=== PATIENT | female | born 1950 | race Caucasian/White ===

== ENCOUNTER 2017-01-01 17:29 | Observation (INO) | payer MEDICARE ==
[2017-01-01 18:02] LABS: Hematocrit 38.8 % (37.0-47.0); Hemoglobin 12.3 gm/dL (12.5-16.0); Mean Cell Volume 87.6 fl (78-100); Mean Corpuscular Hemoglobin 27.8 pg (27-31); Mean Corpuscular Hgb Conc 31.7 g/dl (32-36); Mean Platelet Volume 9.8 fl (6.0-9.5); Neutrophil # 5.4 K/mm3 (1.3-6.0); Neutrophil % 70.4 % (42-75.0); Platelet Count 198 K/mm3 (150-450); Red Blood Count 4.43 M/mm3 (4.2-5.4); Red Cell Distribution Width 13.9 % (11.5-14.0); White Blood Count 7.7 K/mm3 (4.0-10.5)
[2017-01-01] MEDS ORDERED: ASPIRIN 81 MG TAB.CHEW ONE (18:09)
--- NOTE | 2017-01-01 18:12 | ERNOTE ---
Dyspnea - General Presenting Symptoms: shortness of breath Time Seen by Provider: 01/01/17 17:50 Source: patient Exam Limitations: no limitations - Immun/Allergies/Home Medications Immunizations: IMMUNIZATION HX Immunizations Up to Date Yes History of Influenza Vaccine Yes Hx Pneumococcal Vaccination Yes Allergies/Adverse Reactions: Allergies lisinopril Adverse Reaction (Mild, Verified 12/21/15 06:21) ? COUGH Home Medications: HOME MEDICATIONS Calcium Carbonate/Vitamin D3 [Calcium 600-Vit D3 400 Tablet] 1 each PO BID 12/06 [Last Taken Unknown] Carvedilol [Coreg] 25 mg PO BIDWM 12/06/15 [Last Taken 12/21/15 05:00] Furosemide [Lasix] 40 mg PO DAILY 12/06/15 [Last Taken Unknown] Montelukast Sodium [Singulair] 10 mg PO QPM 12/06/15 [Last Taken Unknown] Pantoprazole Sodium [Protonix] 40 mg PO BID 12/06/15 [Last Taken Unknown] Potassium Chloride [Klor-Con 10] 20 meq PO DAILY PRN 12/06/15 [Last Taken Unknown] Aspirin [Aspirin Enteric Coated] 81 mg PO DAILY 12/12/15 [Last Taken Unknown] Levothyroxine Sodium [Synthroid] 50 mcg PO DAILY 12/12/15 [Last Taken Unknown] Oxybutynin Chloride [Ditropan Xl] 10 mg PO DAILY 12/12/15 [Last Taken Unknown] amLODIPine BESYLATE [Norvasc] 5 mg PO DAILY 12/12/15 [Last Taken 12/21/15 05:00] traZODone HCL [Desyrel] 100 mg PO HS 12/12/15 [Last Taken Unknown] Oxybutynin Chloride [Ditropan] 5 mg PO BID 01/01/17 [Last Taken Unknown] Ropinirole HCl [Requip] 0.25 mg PO HS 01/01/17 [Last Taken Unknown] - History of Present Illness Narrative: Patient states that she has bee short of breath for at least two weeks. The symptoms started gradually and have been getting worse. She was seen in the clinic on 12/20 and started on augmentin for sinusitis with no relieve. She was seen again today and send to the ER as her symptoms had gotten worse. She was diagnosed with afib two years ago, had a few cardioversions, was on coumadin and elliquis but was bleeding too much and is only taking ASA currently. The end of October Dr Cage (cardiology) stop her losartan/HCTZ as her heart rate was not controlled and put her on cardizem instead. Since that was her only new medication and she was concerned that it might be causing her symptoms she stopped it three days ago. She also has a history of CHF, put on about 6lbs in the last two weeks Initiating event: Denies: upper resp illness, out of meds Frequency of episodes: Denies: no prior episodes Modifying Factors - (Improves): Reports: rest Modifying Factors (Worsens): Reports: activity, lying down Associated Symptoms-Dyspnea: Reports: chest pain/discomfort, palpitations, cough. Denies: fever/chills Prior Treatment: Reports: recently seen, currently on antibiotics Review of Systems - Review of Systems Constitutional: Present: recent illness, malaise. Absent: fever, chills ENT: Present: nose congestion. Absent: ear pain, nasal drainage Respiratory: Present: See HPI, shortness of breath, cough Cardiology: Present: chest pain - central tighness Gastrointestinal/Abdominal: Absent: nausea, vomiting, abdominal pain Genitourinary: Present: dysuria Neurological: Absent: headache - Patient's Past Medical History Patient History - Medical: Depression, GERD, Obesity, Osteoarthritis Patient History - Cardiac/Respiratory: Atrial Fibrillation, CHF, Hypertension Patient History - Cancer: No Hx of Cancer Patient History - Surgical Procedures: Appendectomy, Colonoscopy, D & C, T & A Patient History - Other: None - Family History Father Family History - Medical: Mother Family History - Medical: , Diabetes Type 2 Family History - Cardiac/Respiratory: Angina Sister Family History - Medical: History Unknown - Social History Living Situations: home Abuse History: No History of abuse Psych History: Hx of Depression, Current tx/ever been on anti-depressants or anti-anxiety meds Smoking Status: Never smoker Have you smoked in the past 12 months: No Do you dip or chew tobacco: No Alcohol Use: rarely Drug Use: none - Immunizations Immunizations Up to Date: Yes Hx Pneumococcal Vaccination: Yes History of Influenza Vaccine: Yes Physical Exam - Physical Exam General Appearance: Present: wd/wn, alert, mild distress, anxious Eye Exam: Normal inspection: bilateral, PERRL: bilateral Ears, Nose, Throat: Present: normal pharynx Respiratory: Present: decreased breath sounds, rales - both bases Cardiovascular/Chest: Present: tachycardia, irregularly irregular Gastrointestinal/Abdominal: Present: nontender, nondistended, soft Extremity Exam: Present: normal inspection, no edema Neurological Exam: Present: alert, oriented, normal mood/affect Skin Exam: Present: normal color, warm/dry ED Progress - Results and Orders Patient's Lab Results:: I have reviewed the patient's lab results. - Vital Signs Patient's Vital Signs:: I have reviewed the patient's vital signs. Vital Signs: Vital Signs 01/01/17 17:30 Temperature 35.8 C L Pulse Rate 125 H Respiratory 20 Rate Blood Pressure 162/124 O2 Sat by Pulse 95 Oximetry - EKG EKG: atrial fibrillation - HR 117, other - low voltage, no acute changes, no previous EKG read: Interp. by me - Progress/Reassessment Chief Complaint: Dyspnea Progress Note-Subjective: 01/01/17 18:23 after first nitro chest pain from 02/25 to 210 01/01/17 18:58 pain resolved after third nitro, HR 90's after cardizem patient now admits that she stopped her lasix the last couple of days as it was hard for her to get to the bathroom 01/01/17 19:30 discussed results with patient and family, offered admission for chest pain rule out and CHf exacerbation, patient agreed no chest pain at this time 01/01/17 19:35 discussed with Delta (hospitalist) accepted patient for observation admission Departure Clinical Impression: Atrial fibrillation with RVR CHF (congestive heart failure) Qualifiers: Congestive heart failure type: unspecified congestive heart failure type Congestive heart failure chronicity: acute on chronic Qualified Code(s): I50.9 - Heart failure, unspecified Chest pain Qualifiers: Chest pain type: precordial chest pain Qualified Code(s): R07.2 - Precordial pain - Departure Disposition: [facility] Condition: Good
--- OUTSIDE RECORDS SUMMARY | 2017-01-01 18:12 | XMS REPORT | Summary of Care ---
:1950 Author Organization [facility] Address [address] [place] [id number]- Care Team Providers Name Role Phone Rosita Pena Primary Care Physician Yanelis Klein Primary Care Physician Encounter Date(s): 04/26/16 - 04/26/[address] [address]- [facility] Final: Unspecified atrial fibrillation Discharge Disposition: 01 Discharged to Home or Self Care Attending Physician: Messi Cage DO Admitting Physician: Messi Cage DO Vital Signs No data available for this section Problem List Condition Effective Dates Status Health Status Informant Atrial fibrillation(Confirmed) Active Depression(Confirmed) Active Thyroid disease(Confirmed) Active Anxiety disorder(Confirmed) Active GERD - Gastro-esophageal reflux Active disease(Confirmed) Hyperlipidemia(Confirmed) Active Hypertension(Confirmed) Active Hypothyroidism(Confirmed) Active OA - Osteoarthritis(Confirmed) Active Obesity(Confirmed) Active Moderate recurrent major Active depression(Confirmed) RLS (restless legs Active syndrome)(Confirmed) Allergies, Adverse Reactions, Alerts Substance Reaction Severity Status codeine Hives Severe Active Medications Ambien 10 mg, Oral, HS, 0 Refill(s) Start Date: 02/17/14 Stop Date: 06/23/15 Status: Completedamiodarone 200 mg oral tablet 1 tab(s), Oral, Daily Start Date: 04/08/14 Stop Date: 05/07/14 Status: Discontinuedamiodarone 200 mg oral tablet 1 tab(s), Oral, BID, # 180 tab(s), 3 Refill(s), [facility] Start Date: 05/07/14 Stop Date: 04/18/15 Status: DiscontinuedamLODIPine 5 mg oral tablet 1 tab(s), Oral, Daily, # 90 tab(s), 3 Refill(s), Start Date: 09/15/15 16:24:00 CDT, Pharmacy: [facility] Start Date: 09/15/15 Stop Date: 05/01/16 Status: Discontinuedamoxicillin-clavulanate ES 875 mg, Oral, BID, 0 Refill(s), Start Date: 03/23/15 10:38:00 CDT Start Date: 03/23/15 Stop Date: 06/29/15 Status: Discontinuedaspirin 81 mg, Oral, Daily, 0 Refill(s), Start Date: 02/17/14 14:40:00 CDT Start Date: 02/17/14 Status: OrderedBenicar HCT 40 mg-25 mg oral tablet 1 tab(s), Oral, Daily, 0 Refill(s) Start Date: 02/17/14 Stop Date: 01/27/15 Status: CompletedCalcium 600+D See Instructions, One tablet twice daily, 0 Refill(s), Start Date: 06/29/15 11: 13:00 CDT Special Instructions: One tablet twice daily Start Date: 06/29/15 Status: Orderedcarvedilol 25 mg oral tablet 1 tab(s), Oral, BID, # 180 tab(s), 3 Refill(s), Start Date: 12/07/15 15:59:00 NEWSCAST DIRECTOR, Pharmacy: [facility] Start Date: 12/07/15 Stop Date: 12/01/16 Status: Orderedcarvedilol 25 mg oral tablet 1 tab(s), Oral, BID, # 60 tab(s), 0 Refill(s), Start Date: 06/29/15 11:14:00 CDT Start Date: 06/29/15 Stop Date: 12/07/15 Status: Discontinuedcarvedilol 25 mg oral tablet 1 tab(s), Oral, BID Start Date: 04/08/14 Stop Date: 01/27/15 Status: Completedcitalopram 40 mg oral tablet 1 tab(s), Oral, Daily Start Date: 04/08/14 Stop Date: 06/23/15 Status: CompletedCoreg 6.25 mg oral tablet 1 tab(s), Oral, BID, 0 Refill(s) Start Date: 02/17/14 Stop Date: 01/26/15 Status: CompletedDexilant 60 mg, Oral, Daily, 0 Refill(s) Start Date: 02/17/14 Stop Date: 04/08/14 Status: DiscontinuedEliquis 5 mg oral tablet 1 tab(s), Oral, BID, # 180 tab(s), 3 Refill(s), Start Date: 03/24/15 12:09:32 CDT, Pharmacy: [id number] Start Date: 03/24/15 Stop Date: 06/21/15 Status: DiscontinuedEliquis 5 mg oral tablet 1 tab(s), Oral, BID, # 180 tab(s), 3 Refill(s), Start Date: 02/16/15 16:15:00 CDT, Pharmacy: [facility] Start Date: 02/16/15 Stop Date: 03/24/15 Status: CompletedEliquis 5 mg oral tablet 1 tab(s), Oral, BID, # 60 tab(s), 0 Refill(s), Start Date: 02/16/15 16:14:00 CDT Start Date: 02/16/15 Stop Date: 02/16/15 Status: Discontinuedfurosemide 40 mg oral tablet 1 tab(s), Oral, Daily, # 90 tab(s), 3 Refill(s), Start Date: 12/07/15 15:59:00 NEWSCAST DIRECTOR, Pharmacy: [facility] Start Date: 12/07/15 Stop Date: 12/01/16 Status: Orderedfurosemide 40 mg oral tablet 1 tab(s), Oral, Daily Start Date: 04/08/14 Stop Date: 12/07/15 Status: DiscontinuedHYDROcodone-acetaminophen 5 mg-325 mg oral tablet 1 tab(s), Oral, q6hr, PRN for pain, X 5 days, # 20 tab(s), 0 Refill(s), Start Date: 02/07/16 14:13:00 CDT, Pharmacy: [id number] Start Date: 02/07/16 Stop Date: 02/12/16 Status: CompletedKlor-Con 10 oral tablet, extended release 2 tab(s), Oral, Daily Start Date: 04/08/14 Stop Date: 10/24/15 Status: Discontinuedlevothyroxine 25 mcg (0.025 mg) oral tablet 1 tab(s), Oral, Daily Start Date: 04/08/14 Stop Date: 06/29/15 Status: Discontinuedlevothyroxine 50 mcg (0.05 mg) oral tablet 1 tab(s), Oral, Daily, # 30 tab(s), 1 Refill(s), Start Date: 06/29/15 11:48:00 CDT, Pharmacy: [id number] Start Date: 06/29/15 Status: Orderedlidocaine 2% topical gel with applicator 10 mL, Topical, BID, PRN pain mild 1-3, # 280 mL, 0 Refill(s), Start Date: 02/06 14:09:00 CDT, Pharmacy: [id number] Start Date: 02/07/16 Stop Date: 02/07/16 Status: Discontinuedlidocaine 4% topical cream 1 chaya, Topical, BID, PRN pain mild 1-3, X 5 days, # 30 gm, 1 Refill(s), Start Date: 02/07/16 15:37:00 CDT, Pharmacy: [id number] Start Date: 02/07/16 Stop Date: 02/17/16 Status: Completedlosartan-hydrochlorothiazide 100 mg-25 mg oral tablet 1 tab(s), Oral, Daily, # 90 tab(s), 3 Refill(s), Start Date: 12/07/15 15:54:00 NEWSCAST DIRECTOR, Pharmacy: [facility] Start Date: 12/07/15 Stop Date: 12/01/16 Status: Orderedlosartan-hydrochlorothiazide 100 mg-25 mg oral tablet 1 tab(s), Oral, Daily Start Date: 04/08/14 Stop Date: 12/07/15 Status: DiscontinuedMetroGel 1% topical gel 1 chaya, Topical, Daily, # 45 gm, 0 Refill(s), Pharmacy: [facility] [place] Start Date: 05/25/14 Stop Date: 01/27/15 Status: Completedmiconazole 2% topical cream 1 chaya, Topical, BID, X 14 days, # 60 gm, 1 Refill(s), Start Date: 09/15/15 16:29 :00 CDT, Pharmacy: [id number] Start Date: 09/15/15 Stop Date: 10/13/15 Status: Completedmontelukast 10 mg oral tablet 1 tab(s), Oral, qPM, # 90 tab(s), 3 Refill(s), Start Date: 12/07/15 15:58:00 NEWSCAST DIRECTOR , Pharmacy: [facility] Start Date: 12/07/15 Stop Date: 12/01/16 Status: Orderedmontelukast 10 mg oral tablet 1 tab(s), Oral, qPM Start Date: 04/08/14 Stop Date: 12/07/15 Status: Discontinuedmultivitamin 1 tab(s), Oral, Daily, 0 Refill(s), Start Date: 09/15/15 15:00:00 CDT Start Date: 09/15/15 Status: OrderedNorvasc 10 mg oral tablet 1 tab(s), Oral, Daily, # 30 tab(s), 5 Refill(s), Start Date: 05/01/16 16:12:00 CDT, Pharmacy: [id number] Start Date: 05/01/16 Status: Orderednystatin 100,000 units/g topical powder 1 chaya, Topical, BID, X 90 days, # 60 gm, 1 Refill(s), Start Date: 08/17/15 15:07 :00 CDT, Pharmacy: [facility] Start Date: 08/17/15 Stop Date: 02/13/16 Status: Completedoxybutynin 10 mg/24 hr oral tablet, extended release 1 tab(s), Oral, Daily, X 90 days, # 90 tab(s), 3 Refill(s), Start Date: 15:57:17 NEWSCAST DIRECTOR, Pharmacy: [facility] Start Date: 12/07/15 Stop Date: 01/09/16 Status: Completedoxybutynin 10 mg/24 hr oral tablet, extended release 1 tab(s), Oral, Daily, # 90 tab(s), 0 Refill(s), Start Date: 01/09/16 10:35:50 NEWSCAST DIRECTOR, Pharmacy: [facility] Start Date: 01/09/16 Status: Orderedoxybutynin 10 mg/24 hr oral tablet, extended release 1 tab(s), Oral, Daily, X 30 days, # 30 tab(s), 1 Refill(s), Start Date: 10:21:00 NEWSCAST DIRECTOR, Pharmacy: [facility] [id number] Start Date: 10/24/15 Stop Date: 12/07/15 Status: CompletedPercocet 5/325 1 tab(s), Oral, q6hr interval, PRN pain moderate 4-7, 0 Refill(s), Start Date: 02/07/16 12:57:00 CDT Start Date: 02/07/16 Stop Date: 05/01/16 Status: DiscontinuedProtonix 40 mg oral delayed release tablet 1 tab(s), Oral, Daily, # 90 tab(s), 3 Refill(s), Start Date: 12/07/15 15:56:00 NEWSCAST DIRECTOR, Pharmacy: [facility] Start Date: 12/07/15 Stop Date: 12/01/16 Status: OrderedProtonix 40 mg oral delayed release tablet 1 tab(s), Oral, Daily Start Date: 04/08/14 Stop Date: 12/07/15 Status: DiscontinuedrOPINIRole 0.25 mg oral tablet 1 tab(s), Oral, HS, 1 to 3 hours before bedtime., # 90 tab(s), 1 Refill(s), Start Date: 12/07/15 16:07:00 NEWSCAST DIRECTOR, Pharmacy: [facility] Special Instructions: 1 to 3 hours before bedtime. Start Date: 12/07/15 Stop Date: 06/04/16 Status: Orderedsertraline 100 mg oral tablet 1 tab(s), Oral, Daily, # 90 tab(s), 3 Refill(s), Start Date: 10/24/15 10:13:00 NEWSCAST DIRECTOR, Pharmacy: [facility] Start Date: 10/24/15 Stop Date: 10/18/16 Status: Orderedsertraline 25 mg oral tablet 1 tab(s), Oral, Daily, Patient to schedule follow-up before further refills., # 90 tab(s), 0 Refill(s), Start Date: 07/28/15 12:41:00 CDT, Pharmacy: [facility] Special Instructions: Patient to schedule follow-up before further refills. Start Date: 07/28/15 Stop Date: 08/17/15 Status: Discontinuedsertraline 25 mg oral tablet 1 tab(s), Oral, Daily, # 30 tab(s), 0 Refill(s), Start Date: 06/29/15 11:47:00 CDT, Pharmacy: [facility] [id number] Start Date: 06/29/15 Stop Date: 07/28/15 Status: Completedsertraline 50 mg oral tablet 1.5 tab(s), Oral, Daily, X 90 days, # 135 tab(s), 1 Refill(s), Start Date: 09/15 15:36:29 CDT, Pharmacy: [facility] Start Date: 09/15/15 Stop Date: 10/24/15 Status: Completedsertraline 50 mg oral tablet 1 tab(s), Oral, Daily, # 90 tab(s), 3 Refill(s), Start Date: 08/17/15 15:04:00 CDT, Pharmacy: [facility] Start Date: 08/17/15 Stop Date: 09/15/15 Status: DiscontinuedSuprep Bowel Prep Kit oral liquid 1 bottles, Oral, BID, Mix 1 btl to 16oz water and drink. Next morning; repeat use second btl. Complete at least 1 hr before colonscopy., # 1 kit(s), 0 Refill (s), Start Date: 02/16/15 15:52:00 CDT, Pharmacy: [place], [place] Special Instructions: Mix 1 btl to 16oz water and drink. Next morning; repeat use second btl. Complete at least 1 hr before colonscopy. Start Date: 02/16/15 Stop Date: 03/26/15 Status: Completedtemazepam 30 mg oral capsule 1 cap(s), Oral, HS, PRN for sleep, 0 Refill(s), Start Date: 06/23/15 11:02:00 CDT Start Date: 06/23/15 Stop Date: 08/17/15 Status: DiscontinuedtraZODone 50 mg oral tablet 1 tab(s), Oral, HS, # 90 tab(s), 3 Refill(s), Start Date: 08/17/15 15:03:00 CDT , Pharmacy: [facility] Start Date: 08/17/15 Stop Date: 08/11/16 Status: OrderedTylenol Extra Strength 1,000 mg, Oral, q6hr interval, 0 Refill(s), Start Date: 01/28/15 16:24:00 CDT Start Date: 01/28/15 Stop Date: 01/28/15 Status: DiscontinuedViibryd 40 mg oral tablet 1 tab(s), Oral, Daily, 0 Refill(s) Start Date: 02/17/14 Stop Date: 01/26/15 Status: Discontinuedwarfarin 3 mg, Daily, take as directed per coumadin clinic, 0 Refill(s) Special Instructions: take as directed per coumadin clinic Start Date: 02/17/14 Stop Date: 04/01/14 Status: Discontinuedwarfarin 3 mg oral tablet 1 tab(s), Oral, Daily, take as directed per coumadin clinic, # 90 tab(s), 3 Refill(s), Pharmacy: [facility] Special Instructions: take as directed per coumadin clinic Start Date: 04/01/14 Stop Date: 03/23/15 Status: Completed Results No data available for this section Immunizations Vaccine Date Refusal Reason influenza virus vaccine, inactivated 09/22/12 pneumococcal 23-polyvalent vaccine 01/20/07 zoster vaccine live1 09/17/15 1Result Comment: [09/19/2015] Given at [facility] Procedures Procedure Date Related Diagnosis Body Site Echocardiography1 04/17/16 Colonoscopy2 03/25/15 Esophagogastroduodenoscopy3 03/25/15 Catheter ablation for cardiac arrhythmia 05/13/14 Arthroscopy of knee4 Arthroscopy of shoulder, left total Colonoscopy D&C - Dilatation and curettage Multiple right knee surgeries Tonsillectomy 1Scanned In - Done at [id number] from documented surgical [id number] from documented surgical [id number] Social History No data available for this section Assessment and Plan No data available for this section
--- OUTSIDE RECORDS SUMMARY | 2017-01-01 18:12 | XMS REPORT | Continuity of Care Document ---
:1950 Author Organization [facility] ([facility]) Address [address] [place] [address] Phone [phone] Care Team Providers Name Role Phone Yanelis Klein Primary Care Provider [phone] Source Comments This disclosure is being made pursuant to the Care Everywhere program, applicable federal and state laws, and may not contain all informaitonavailable regarding this patient.[facility] ([facility]) Active Allergies and Adverse Reactions No Known Allergies Current Medications Prescription Sig. Disp. Refills Start Date End Date Status CARVEDILOL 25 mg tablet 08/23/2015 Active FLUVIRIN 4513-4921 45 mcg 0 08/08/2015 Active (15 mcg x 3)/0.5 mL susp LEVOTHYROXINE 50 mcg 1 06/29/2015 Active tablet LOSARTAN-HYDROCHLOROTHIAZI 08/23/2015 Active DE 100-25 mg per tablet MONTELUKAST 10 mg tablet 08/23/2015 Active NYSTATIN 100,000 unit/g 08/19/2015 Active powder SERTRALINE 50 mg tablet 08/19/2015 Active TRAZODONE 50 mg tablet 08/19/2015 Active aspirin 81 mg EC tablet Take 81 mg by Active mouth daily. oxybutynin 10 mg CR tablet Take 10 mg by Active mouth daily. amLODIPine 5 mg tablet Take 5 mg by mouth Active daily. multivitamin tablet Take 1 tablet by Active mouth daily. rOPINIRole 0.25 mg tablet Take 0.25 mg by Active mouth 3 times daily. potassium chloride PO Active naproxen 250 mg tablet Take 250 mg by Active mouth 2 times daily with meals. traMADol 50 mg tablet Take 50 mg by Active mouth 4 times daily as needed. metaxalone 800 mg tablet Take 800 mg by Active mouth 3 times daily. HYDROcodone-acetaminophen 0 04/12/2016 Active 5-325 mg per tablet Active Problems Problem Noted Date Abdominal pannus 04/26/2016 Macromastia 09/16/2015 Social History Tobacco Use Types Packs/Day Years Used Date Never Smoker Smokeless Tobacco: Never Used Last Filed Vital Signs Vital Sign Reading Time Taken Blood Pressure 140/83 09/13/2015 2:40 PM CDT Pulse 78 09/13/2015 2:40 PM CDT Temperature 36 C (96.8 F) 04/24/2016 4:23 PM CDT Respiratory Rate - - Height 1.74 m (5' 8.5") 09/13/2015 2:40 PM CDT Weight 104.65 kg (230 lb 11.4 oz) 09/13/2015 2:40 PM CDT Body Mass Index 34.57 09/13/2015 2:40 PM CDT Oxygen Saturation - - Plan of Care Health Maintenance Due Date Last Done Comments HCV Screening 1950 Hepatitis B Vaccine (1 of 3 - Primary Series) 1950 Tdap Vaccine 1961 Lipid Disorder Screening 02/24/1968 Td Vaccine 02/24/1968 Mammogram 1990 Colonoscopy 2000 Zoster Vaccine 2010 Osteoporosis Screening (DXA Bone Density) 2015 Pneumococcal Vaccine (1 of 2 - PCV13) 2015 Influenza Vaccine: Seasonal (#1) 06/18/2016 Results from Last 3 Months Not on file
[2017-01-01] MEDS: NITROGLYCERIN 0.4 MG/TAB BTL SL ONE ×3 (18:18→18:47)
[2017-01-01] MEDS ORDERED: ASPIRIN 81 MG TAB.CHEW PO ONE (18:19)
[2017-01-01 18:21] LABS: ALT 36 U/L (19-67); AST 29 U/L (0-48); Albumin * 3.8 gm/dl (3.4-5.0); Alkaline Phosphatase * 62 U/L (50-170); Anion Gap 10.9 mmol/L (6.8-13.8); BNP * 8018 pg/mL (5-325); BUN/Creatinine Ratio 12.5 (9.0-21.6); Bilirubin, Total 0.8 mg/dL (0.0-1.1); Blood Urea Nitrogen 17 mg/dL (3-23); Ca. Corrected For Albumin 8.6 mg/dL (8.4-10.2); Calcium * 8.8 mg/dL (7.9-10.9); Carbon Dioxide 28.5 mmol/L (24-32.6); Chloride 108 mmol/L (97-106); Glucose * 102 mg/dL (70-110); Potassium 4.4 mmol/L (3.4-4.6); Sodium 143 mmol/L (132-142); Total Protein 6.6 gm/dL (6.2-8.2); Troponin I Less than 0.017 ng/ml (0.00-0.10)
[2017-01-01] MEDS ORDERED: DILTIAZEM HCL 5 MG/ML VIAL IV ONE ×2 (18:24→18:25)
[2017-01-01] MEDS ORDERED: FUROSEMIDE 10 MG/ML VIAL IV ONE (19:40)
[2017-01-01] MEDS ORDERED: DILTIAZEM HCL 30 MG TABLET PO ONE (19:43)
[2017-01-01] MEDS ORDERED: DILTIAZEM HCL 30 MG TABLET ONE (19:45)
[2017-01-01] MEDS ORDERED: FUROSEMIDE 10 MG/ML VIAL ONE (19:45)
--- OUTSIDE RECORDS SUMMARY | 2017-01-01 19:48 | XMS REPORT | Continuity of Care Document ---
:1950 Author Organization [facility] ([facility]) Address [address] [place] [address] Phone [phone] Care Team Providers Name Role Phone Yanelis Klein Primary Care Provider [phone] Source Comments This disclosure is being made pursuant to the Care Everywhere program, applicable federal and state laws, and may not contain all informaitonavailable regarding this patient.[facility] ([facility]) Active Allergies and Adverse Reactions No Known Allergies Current Medications Prescription Sig. Disp. Refills Start Date End Date Status CARVEDILOL 25 mg tablet 08/23/2015 Active FLUVIRIN 7715-5063 45 mcg 0 08/08/2015 Active (15 mcg [...]
[2017-01-01] MEDS ORDERED: ATORVASTATIN CALCIUM 40 MG TABLET PO STA (20:07)
[2017-01-01] MEDS ORDERED: ATORVASTATIN CALCIUM 40 MG TABLET ONE (20:11)
--- NOTE | 2017-01-01 21:46 | HP ---
Chief Complaint - Chief Complaint Date of Service: 01/01/17 Time of Service: 21:10 Chief Complaint: chest pain, shortness of breath, increased weight. History of Present Illness: 66 Years old female adm to the hospital from ER with reports of shortness of breath, palpitation,orthopnea and increased weight gain x2 weeks. PMH significant for A-fib, CHF, hypertension,and depression. Pt stated she was seen by PCP 2 weeks ago and treated for sinusitis. Despite treatment she continued to have increased non productive cough, shortness of breath, weakness, palpitation and orthopnea. She had stopped using her Lasix, because she felt too weak going to the bathroom. pt stated around the same time she was started on Cardizem by hand tube winder 11/24/16, she thought her s/s was as a result of the Cardizem so she stopped taking the medication. She had noticed 7-8lb weight gain over the 2 weeks and haven't had an appetite since. She was concerned about s/s earlier today and called cardiology service that instructed her to visit ER. In ER HR was between 110-120 she was given Cardizem, Aspirin and Lasix. pt stated chest pain resolved and now feeling much better than she did for the past 2 weeks. CXR_ mild congestion BNP >8K. Plan to adm observation for chest pain and CHF exacerbation. - Patient's Past Medical History Patient History - Medical: Depression, GERD, Hypothyroidism, Obesity, Osteoarthritis Patient History - Cardiac/Respiratory: Atrial Fibrillation - was taken off coumadin only takes aspirin, CHF, Hypertension, Other Patient History - Cancer: No Hx of Cancer Patient History - Surgical Procedures: Appendectomy, Colonoscopy, D & C, Total Knee Replacement - right knee, T & A, Other - left shoulder repair,tonsillectomy Patient History - Other: None - Family History Father Family History - Medical: Mother Family History - Medical: , Diabetes Type 2 Family History - Cardiac/Respiratory: Angina Sister Family History - Medical: History Unknown - Social History Living Situations: alone Abuse History: No History of abuse Psych History: Hx of Depression, Current tx/ever been on anti-depressants or anti-anxiety meds Smoking Status: Never smoker Have you smoked in the past 12 months: No Do you dip or chew tobacco: No Alcohol Use: rarely Drug Use: none - Immunizations Immunizations Up to Date: Yes Hx Pneumococcal Vaccination: Yes History of Influenza Vaccine: Yes Review Of Systems (GEN) - Review of Systems Generalized/Overall Review: Present: Weakness EENTM: Present: No Symptoms Reported Respiratory: Present: Shortness of Breath, Orthopnea, Wheezing Cardiac: Present: Palpitations Abdominal: Present: No Symptoms Reported Genitourinary: Present: Frequency Musculoskeletal: Present: No Symptoms Reported Neurological: Present: No Symptoms Reported Skin: Present: No Symptoms Reported Endocrine: Present: No Symptoms Reported Immunizations: IMMUNIZATION HX Immunizations Up to Date Yes History of Influenza Vaccine Yes Hx Pneumococcal Vaccination Yes Allergies/Adverse Reactions: Allergies Allergy/AdvReac Type Severity Reaction Status Date / Time lisinopril AdvReac Mild COUGH Verified 01/01/17 20:57 Home Medications: HOME MEDICATIONS Calcium Carbonate/Vitamin D3 [Calcium 600-Vit D3 400 Tablet] 1 each PO BID 12/06 [Last Taken Unknown] Carvedilol [Coreg] 25 mg PO BIDWM 12/06/15 [Last Taken 12/21/15 05:00] Furosemide [Lasix] 40 mg PO DAILY 12/06/15 [Last Taken Unknown] Montelukast Sodium [Singulair] 10 mg PO QPM 12/06/15 [Last Taken Unknown] Potassium Chloride [Klor-Con 10] 20 meq PO DAILY PRN 12/06/15 [Last Taken Unknown] Aspirin [Aspirin Enteric Coated] 81 mg PO DAILY 12/12/15 [Last Taken Unknown] Levothyroxine Sodium [Synthroid] 50 mcg PO DAILY 12/12/15 [Last Taken Unknown] traZODone HCL [Desyrel] 100 mg PO 12/12/15 [Last Taken Unknown] Alendronate Sodium [Fosamax] 70 mg PO TU 01/01/17 [Last Taken Unknown] Diltiazem HCl [Cardizem LA] 120 mg PO DAILY 01/01/17 [Last Taken Unknown] Multivitamin [One Daily Essential] 1 each PO DAILY 01/01/17 [Last Taken Unknown] Oxybutynin Chloride [Ditropan Xl] 10 mg PO DAILY 01/01/17 [Last Taken Unknown] Pantoprazole Sodium [Protonix] 40 mg PO BID 01/01/17 [Last Taken Unknown] Ropinirole HCl [Requip] 0.25 mg PO HS 01/01/17 [Last Taken Unknown] Sertraline HCl [Zoloft] 100 mg PO DAILY 01/01/17 [Last Taken Unknown] Exam - Exam Vital Signs: Vital Signs - Last Taken Temp 36.6 C 01/01/17 20:39 Pulse 83 01/01/17 20:39 Resp 20 01/01/17 20:39 BP 151/96 01/01/17 20:39 Pulse Ox 95 01/01/17 20:39 Constitutional: Present: Alert, Oriented x3, Cooperative, Well developed, No distress, Obese ENT Exam: Present: moist mucous membranes Eye Exam: bilateral eye: PERRL Neck: Present: full range of motion Back Exam: Present: no CVA tenderness Respiratory: Present: no respiratory distress, decreased breath sounds, crackles Cardiovascular/Chest: Present: irregularly irregular Peripheral Pulses: dorsalis-pedis (R): 3+, dorsalis-pedis (L): 3+ Abdomen: Present: Normal bowel sounds /Rectal: Present: Exam deferred Extremity: Present: normal range of motion, normal inspection, normal capillary refill, lower extremity edema - BLE pitting Skin Exam: Present: normal color, warm/dry, no cyanosis Neurologic: Present: oriented x 3 Appearance: Present: appropriate appearance Eye contact: Present: cooperative Thoughts: Present: normal thought pattern Diagnostic Studies: Laboratory Results WBC 7.7 K/mm3 (4.0-10.5) 01/01/17 17:54 RBC 4.43 M/mm3 (4.2-5.4) 01/01/17 17:54 Hgb 12.3 gm/dL (12.5-16.0) L 01/01/17 17:54 Hct 38.8 % (37.0-47.0) 01/01/17 17:54 MCV 87.6 fl (78-100) 01/01/17 17:54 MCH 27.8 pg (27-31) 01/01/17 17:54 MCHC 31.7 g/dl (32-36) L 01/01/17 17:54 RDW 13.9 % (11.5-14.0) 01/01/17 17:54 Plt Count 198 K/mm3 (150-450) 01/01/17 17:54 MPV 9.8 fl (6.0-9.5) H 01/01/17 17:54 Immature Gran % (Auto) 0.30 % (0.001-0.429) 01/01/17 17:54 Immature Gran # (Auto) 0.02 K/mm3 (0.000-0.0310) 01/01/17 17:54 Neutrophils % 70.4 % (42-75.0) 01/01/17 17:54 Lymphocytes % 21.7 % (20-51) 01/01/17 17:54 Monocytes % 6.0 % (0.0-9) 01/01/17 17:54 Eosinophils % 1.2 % (0.0-3.0) 01/01/17 17:54 Basophils % 0.4 % (0.0-1.0) 01/01/17 17:54 Nucleated RBC % 0.0 k/mm3 (0-1) 01/01/17 17:54 Neutrophils # 5.4 K/mm3 (1.3-6.0) 01/01/17 17:54 Lymphocytes # 1.7 k/mm3 (1.5-3.5) 01/01/17 17:54 Monocytes # 0.5 k/mm3 (0.0-1.0) 01/01/17 17:54 Eosinophils # 0.1 k/mm3 (0.0-0.7) 01/01/17 17:54 Absolute Basophils 0.0 k/mm3 (0.0-0.1) 01/01/17 17:54 Sodium 143 mmol/L (132-142) H 01/01/17 17:54 Plasma Sodium 143 mmol/L (130-142) H 01/01/17 17:54 Potassium 4.4 mmol/L (3.4-4.6) 01/01/17 17:54 Chloride 108 mmol/L (97-106) H 01/01/17 17:54 Carbon Dioxide 28.5 mmol/L (24-32.6) 01/01/17 17:54 Anion Gap 10.9 mmol/L (6.8-13.8) 01/01/17 17:54 BUN 17 mg/dL (3-23) 01/01/17 17:54 Creatinine 1.36 mg/dL (0.4-1.4) D 01/01/17 17:54 Est GFR (Non-Af Amer) 41 mL/min (60-130) L D 01/01/17 17:54 BUN/Creatinine Ratio 12.5 (9.0-21.6) 01/01/17 17:54 Random Glucose 102 mg/dL (70-110) 01/01/17 17:54 Calcium 8.8 mg/dL (7.9-10.9) 01/01/17 17:54 Calcium Adj for Albumin 8.6 mg/dL (8.4-10.2) 01/01/17 17:54 Total Bilirubin 0.8 mg/dL (0.0-1.1) 01/01/17 17:54 AST 29 U/L (0-48) 01/01/17 17:54 ALT 36 U/L (19-67) 01/01/17 17:54 Alkaline Phosphatase 62 U/L (50-170) 01/01/17 17:54 Troponin I Less than 0.017 ng/ml (0.00-0.10) 01/01/17 17:54 B-Natriuretic Peptide 8018 pg/mL (5-325) H 01/01/17 17:54 Total Protein 6.6 gm/dL (6.2-8.2) 01/01/17 17:54 Albumin 3.8 gm/dl (3.4-5.0) 01/01/17 17:54 CXR: Mild congestive heart failure. Assessment/Plan - Narrative Narrative: Chest pain- resolved EKG- A-fib On adm Initial troponin .017----->negative serial pending BNP >8K-----> CXR- Mild congestive heart failure Aspirin, Cardizem given in ER Telemetry monitoring, repeat EKG in am A-Fib Continue with aspirin, per pt she was on Coumadin but due to bleeding complications it was D/C Cardio-version was attempted in past and was unsuccessful Resume Cardizem at home dose, pt had stopped taking while at home. Acute on chronic systolic CHF-due to medications non-compliance 03/2016 2-D echo EF- 50-55% Lasix 60mg IV x1 given in ER Continue with Lasix 40mg IV daily, will give potassium daily vs PRN which pt was taking at home. BNP >8K, repeat in am BLE pitting edema, NO JVD strict I/O and weight pt daily Low sodium diet Depression- stable Code status: DNR VTE ppx: SCD and ambulate Anticipate DC 0-1 day - Assessment/Plan (1) A-fib Problem: Chronic (2) Chest pain Problem: Resolved Qualifiers: Chest pain type: precordial chest pain Qualified Code(s): R07.2 - Precordial pain (3) CHF (congestive heart failure) Problem: Chronic Qualifiers: Congestive heart failure type: unspecified congestive heart failure type Congestive heart failure chronicity: acute on chronic Qualified Code(s): I50.9 - Heart failure, unspecified (4) Depression Problem: Chronic (5) GERD (gastroesophageal reflux disease) Problem: Chronic (6) Hypertension Problem: Chronic
[2017-01-01] MEDS ORDERED: POTASSIUM CHLORIDE PO PRN (22:01)
[2017-01-01] MEDS ORDERED: ALENDRONATE SODIUM 70 MG TABLET PO SCH (22:15)
[2017-01-01] MEDS ORDERED: SERTRALINE HCL 100 MG TABLET PO SCH (23:09)
[2017-01-01] MEDS ORDERED: traZODone HCL 50 MG TABLET PO SCH (23:09)
[2017-01-01] MEDS ORDERED: rOPINIRole HCL 0.5 MG TABLET PO SCH (23:10)
[2017-01-01] MEDS ORDERED: SERTRALINE HCL 50 MG TABLET ONE (23:12)
[2017-01-01] MEDS ORDERED: rOPINIRole HCL 1 MG TABLET ONE (23:13)
[2017-01-02 06:11] LABS: Albumin * 3.7 gm/dl (3.4-5.0); Anion Gap 12.5 mmol/L (6.8-13.8); BUN/Creatinine Ratio 14.5 (9.0-21.6); Bilirubin, Total 0.7 mg/dL (0.0-1.1); Ca. Corrected For Albumin 8.4 mg/dL (8.4-10.2); Calcium * 8.5 mg/dL (7.9-10.9); Chol/HDL Risk Ratio 3.1 mg/dL (3.3-4.4); Potassium 3.5 mmol/L (3.4-4.6); Total Protein 6.4 gm/dL (6.2-8.2)
[2017-01-02] MEDS ORDERED: LEVOTHYROXINE SODIUM 50 MCG TABLET PO SCH (07:00)
[2017-01-02] MEDS ORDERED: PANTOPRAZOLE SODIUM 40 MG TABLET.EC PO SCH (09:00)
[2017-01-02] MEDS ORDERED: FUROSEMIDE 10 MG/ML VIAL IV SCH (09:00)
[2017-01-02] MEDS ORDERED: ASPIRIN 81 MG TABLET.DR PO SCH (09:00)
[2017-01-02] MEDS ORDERED: DILTIAZEM HCL 120 MG CAP.SR.24H PO SCH (09:00)
[2017-01-02] MEDS ORDERED: SERTRALINE HCL 100 MG TABLET PO SCH (09:00)
[2017-01-02] MEDS ORDERED: POTASSIUM CHLORIDE 20 MEQ TABLET.SA PO SCH (09:00)
[2017-01-02] MEDS ORDERED: OXYBUTYNIN CHLORIDE 5 MG TABLET PO SCH (09:00)
[2017-01-02] MEDS ORDERED: CALCIUM CARBONATE/VITAMIN D3 1 TAB TABLET PO SCH (09:00)
[2017-01-02] MEDS ORDERED: MULTIVITAMINS 1 CAP CAPSULE PO SCH (09:00)
[2017-01-02] MEDS ORDERED: CARVEDILOL 25 MG TABLET PO SCH (09:00)
[2017-01-02] MEDS ORDERED: CARVEDILOL 12.5 MG TABLET PO ONE (09:39)
[2017-01-02] MEDS ORDERED: SPIRONOLACTONE 25 MG TABLET PO ONE (09:45)
[2017-01-02] MEDS ORDERED: MONTELUKAST SODIUM 10 MG TABLET PO SCH (17:00)
[2017-01-02 18:59] VITALS: BP 130/86
[2017-01-02] MEDS ORDERED: rOPINIRole HCL 0.5 MG TABLET PO SCH (21:00)
[2017-01-02] MEDS ORDERED: CARVEDILOL 12.5 MG TABLET PO SCH (21:00)
[2017-01-02] MEDS ORDERED: traZODone HCL 50 MG TABLET PO SCH (21:00)
[2017-01-02] MEDS ORDERED: CARVEDILOL PO SCH ×2 (21:00)
--- NOTE | 2017-01-03 14:10 | ECHO ---
This report is available in the EMR
[2017-01-08] MEDS ORDERED: ALENDRONATE SODIUM 70 MG TABLET PO SCH (06:00)
--- NOTE | 2017-01-13 17:44 | DS ---
(1) Heart failure with preserved left ventricular function (HFpEF) Problem: Acute (2) Atrial fibrillation with RVR Problem: Acute (3) CKD (chronic kidney disease) stage 3, GFR 30-59 ml/min Problem: Chronic (4) Obesity Problem: Chronic Qualifiers: Obesity type: unspecified obesity type (5) Osteoarthritis Diagnosis(s): S/P RT TKA Problem: Chronic Qualifiers: Osteoarthritis location: multiple joints Osteoarthritis type: unspecified Qualified Code(s): M15.9 - Polyosteoarthritis, unspecified (6) Chronic GERD Diagnosis(s): On pantoprazole 40 mg PO BID AC. Problem: Chronic (7) Anxiety with depression Diagnosis(s): On sertraline 100 mg PO daily iin AM and trazodone 100 mg PO HS. Problem: Chronic Description of Stay: DATE OF ADMISSION: 01/01/2017 DATE OF DISCHARGE: 01/02/2017. DIAGNOSTICS: ECHOCARDIOGRAM 01/02/17. HOSPITAL COURSE: Carrie Wood is a 66-year-old yr old WF with a H/O chronic A. fib, HTN, HLD, OA anxiety and depression who came into the ER because of SOB, weight gain palpitations and orthopnea for the last 2 weeks. She was started on diltiazem ER by insurance auditor from 11/24/2016 which she DC'd and also her furosemide due to severe weakness. She noticed a 8 pound gain and was instructed by her insurance auditor to come to the ER. Heart rate was in the 120s, CXR showed mild congestion and BMP greater than 8K. She was admitted for further care and treatment. Patient states she had problems with bleeding with both warfarin and apixaban [ eliquis] and is not on an anticoagulant. She was given furosemide 60 mg IV and achieved good diuresis. Information on a 2 g sodium diet was given. Medications were adjusted and was discharged in a stable condition. More than 50 minutes was spent in examination of the patient, discussing the plan of care, reconciliation of medications, preparation and dictation of discharge summary. Procedures Performed: none Results and Findings: Laboratory Tests 01/01/17 17:54 WBC 7.7 Hgb 12.3 L Hct 38.8 Plt Count 198 01/01/17 01/02/17 17:54 05:30 Plasma Sodium 143 H 145 H Potassium 4.4 3.5 D Chloride 108 H 107 H Carbon Dioxide 28.5 29.0 BUN 17 18 Creatinine 1.36 D 1.24 Est GFR (Non-Af Amer) 41 L D 46 L 01/01/17 01/01/17 17:54 23:42 Troponin I Less than 0.017 Less than 0.017 B-Natriuretic Peptide 8018 H 01/02/17 05:30 Triglycerides 121 Cholesterol 136 LDL Cholesterol 69 L VLDL Cholesterol 24 HDL Cholesterol 43 01/01/17 01/02/17 17:30 04:01 Weight 106.594 kg 102.4 kg CXR: 01/01/2017: 17:45. Cardiomegaly present. Mild pulmonary vascular congestion. There are small bilateral pleural effusions with basilar consolidation compatible with atelectasis. There is left shoulder prosthesis. IMPRESSION: MILD CONGESTIVE HEART FAILURE. 2-D ECHOCARDIOGRAM: 01/02/2017: SUMMARY: [id number] global hypokinesis of the left ventricle. Mild concentric LVH with EF 44%. Doppler flow suggestive of restrictive physiology. Left Atrium moderate to severely dilated; Right Atrium mildly dilated. Mild to moderate MR. Pulm HTN with RVSP 47 mm Hg. Mild TR; IVC is dilated Discharge Disposition: Home self care Disposition: Home self-care Condition: Good Discharge Diet: Low salt, Low fat/chol, High Fiber Referrals: Yanelis Klein FNP [Primary Care Provider] - Problem Oriented Discharge Instructions to Patient/Family: Heart Failure, Easy- to-Read Prescriptions (Any new or edited meds): Carvedilol [Coreg] 37.5 mg PO BID #.1 tablet Cholecalciferol (Vitamin D3) [Vitamin D3] 2,000 unit PO DAILY@1200 #.1 capsule Furosemide [Lasix] 40 mg PO DAILY@1200 #.1 tablet Losartan Potassium [Cozaar] 25 mg PO BID #60 tablet Spironolactone [Aldactone] 12.5 mg PO DAILY@1200 #30 tablet Complete Home Medications List: Complete Home Medication List: Montelukast Sodium [Singulair] 10 mg PO QPM 12/06/15 Aspirin [Aspirin Enteric Coated] 81 mg PO DAILY 12/12/15 Levothyroxine Sodium [Synthroid] 50 mcg PO DAILY 12/12/15 traZODone HCL [Desyrel] 100 mg PO HS 12/12/15 Alendronate Sodium [Fosamax] 70 mg PO TU 01/01/17 Oxybutynin Chloride [Ditropan Xl] 10 mg PO DAILY 01/01/17 Pantoprazole Sodium [Protonix] 40 mg PO BID 01/01/17 Ropinirole HCl [Requip] 0.25 mg PO HS 01/01/17 Sertraline HCl [Zoloft] 100 mg PO DAILY 01/01/17 Carvedilol [Coreg] 37.5 mg PO BID #.1 tablet 01/02/17 Cholecalciferol (Vitamin D3) [Vitamin D3] 2,000 unit PO DAILY@1200 #.1 capsule 01/02/17 Furosemide [Lasix] 40 mg PO DAILY@1200 #.1 tablet 01/02/17 Losartan Potassium [Cozaar] 25 mg PO BID #60 tablet 01/02/17 Spironolactone [Aldactone] 12.5 mg PO DAILY@1200 #30 tablet 01/02/17 Amb Orders for Discharge: Basic Metabolic Panel Time Frame: 01/07/17, Location: Determined By Patient
== END 2017-01-02 19:33 | disposition home or self-care (01) ==
LOC: ER 17:29 → MS 19:43
PROVIDERS: ADMIT Nurse Practitioner; ATTEND Internal Medicine
DX: I50.23 Acute on chronic systolic (congestive) heart failure (principal); I48.2 Chronic atrial fibrillation; N18.3 Chronic kidney disease, stage 3 (moderate); I12.9 Hypertensive chronic kidney disease with stage 1 through stage 4 chronic kidney disease, or unspecified chronic kidney disease; E66.9 Obesity, unspecified; M15.9 Polyosteoarthritis, unspecified; K21.9 Gastro-esophageal reflux disease without esophagitis; F41.8 Other specified anxiety disorders; T50.1X6A Underdosing of loop [high-ceiling] diuretics, initial encounter; Z91.128 Patient's intentional underdosing of medication regimen for other reason
CPT/HCPCS: 36415; 71020; 80053; 80061; 83880; 84484; 85025; 93005; 93306; 94760; 96374; 96375; 99284; G0378

== ENCOUNTER 2017-10-07 15:13 | Emergency (ER) | payer MEDICARE ==
[2017-10-07] MEDS ORDERED: ACETAMINOPHEN 325 MG TABLET PO ONE (15:41)
[2017-10-07] MEDS ORDERED: ORPHENADRINE CITRATE 30 MG/ML VIAL IM ONE (15:41)
[2017-10-07] MEDS ORDERED: ORPHENADRINE CITRATE 30 MG/ML VIAL ONE (15:42)
[2017-10-07] MEDS ORDERED: ACETAMINOPHEN 325 MG TABLET ONE (15:43)
--- NOTE | 2017-10-07 15:43 | ERNOTE ---
Back Pain ER HPI Date of Service: 10/07/17 Presenting Symptoms: injury/pain to back Time Seen by Provider: 10/07/17 15:30 Source: patient, RN notes reviewed Exam Limitations: no limitations Immunizations: IMMUNIZATION HX Immunizations Up to Date Yes History of Influenza Vaccine Yes Hx Pneumococcal Vaccination Yes Allergies/Adverse Reactions: Allergies lisinopril Adverse Reaction (Mild, Verified 10/07/17 15:25) COUGH Home Medications: HOME MEDICATIONS Montelukast Sodium [Singulair] 10 mg PO QPM 12/06/15 [Last Taken Unknown] Aspirin [Aspirin Enteric Coated] 81 mg PO DAILY 12/12/15 [Last Taken Unknown] Levothyroxine Sodium [Synthroid] 50 mcg PO DAILY 12/12/15 [Last Taken Unknown] traZODone HCL [Desyrel] 100 mg PO HS 12/12/15 [Last Taken Unknown] Oxybutynin Chloride [Ditropan Xl] 10 mg PO DAILY 01/01/17 [Last Taken Unknown] Pantoprazole Sodium [Protonix] 40 mg PO DAILY 01/01/17 [Last Taken Unknown] Sertraline HCl [Zoloft] 100 mg PO DAILY 01/01/17 [Last Taken Unknown] rOPINIRole HCL [Requip] 0.5 mg PO HS 01/01/17 [Last Taken Unknown] Cholecalciferol (Vitamin D3) [Vitamin D3] 2,000 unit PO DAILY@1200 #.1 capsule 01/02/17 [Last Taken Unknown] Apixaban [Eliquis] 5 mg PO BID 10/07/17 [Last Taken Unknown] Carvedilol [Coreg] 25 mg PO BID 10/07/17 [Last Taken Unknown] Cyclobenzaprine HCl [Flexeril] 10 mg PO TID PRN #20 tab 10/07/17 [Last Taken Unknown] Furosemide [Lasix] 40 mg PO MOWEFR 10/07/17 [Last Taken Unknown] Spironolactone [Aldactone] 12.5 mg PO MOWEFR 10/07/17 [Last Taken Unknown] Narrative: 67 year old female ambulatory to the ED for low back pain that began 11 days ago. She got her flu vaccine that day and is concerned that this may have caused her to have the back pain. Her pain is radiating down both legs and making it difficult for her to get around. She has even stopped taking her Lasix because she is afraid she won't be able to make it to the bathroom in time. She has tried Aleve for pain without improvement. She has had similar episodes of back pain in the past. Quality/Severity: Reports: severe, aching Location of pain: Reports: lower back, radiating to rt thigh/leg, radiating to lf thigh/leg Activities at Onset: Reports: none Recent Injury?: Reports: no Associated Symptoms: Reports: difficulty walking. Denies: fever/chills, sweating, constipation/incontinence, nausea/vomiting, problems urinating, lightheadedness, numbess/weakness in legs Prior Treament: Reports: similar symptoms before. Denies: recently seen Review of Systems - Review of Systems Constitutional: Absent: recent illness, fever, chills EYE: Present: no symptoms reported ENT: Present: no symptoms reported Respiratory: Absent: shortness of breath, cough Cardiology: Present: edema. Absent: chest pain, palpitations Gastrointestinal/Abdominal: Absent: nausea, vomiting, abdominal pain Genitourinary: Absent: dysuria, hematuria Musculoskeletal: Present: back pain, muscle pain. Absent: joint pain, joint swelling Skin: Absent: rash, lesions, lumps Neurological: Absent: weakness, numbness, tingling Endocrine: Present: no symptoms reported Hematologic/Lymphatic: Present: no symptoms reported Psych: Present: no symptoms reported - Patient's Past Medical History Patient History - Medical: Depression, GERD, Hypothyroidism, Obesity, Osteoarthritis Patient History - Cardiac/Respiratory: Atrial Fibrillation, CHF, Hypertension, Other Patient History - Cancer: No Hx of Cancer Patient History - Surgical Procedures: Appendectomy, Colonoscopy, D & C, Total Knee Replacement, T & A, Other Patient History - Other: None - Family History Father Family History - Medical: Mother Family History - Medical: , Diabetes Type 2 Family History - Cardiac/Respiratory: Angina Sister Family History - Medical: History Unknown - Social History Living Situations: alone Abuse History: No History of abuse Psych History: Hx of Depression, Current tx/ever been on anti-depressants or anti-anxiety meds Smoking Status: Never smoker Have you smoked in the past 12 months: No Do you dip or chew tobacco: No Alcohol Use: none Drug Use: none - Immunizations Immunizations Up to Date: Yes Hx Pneumococcal Vaccination: Yes History of Influenza Vaccine: Yes Physical Exam - Physical Exam General Appearance: Present: wd/wn, alert, other - Appears uncomfortable but appropriately dressed and groomed Neck: Present: normal inspection, nontender, supple, full range of motion Respiratory: Present: no respiratory distress, normal breath sounds, no accessory muscle use, lungs clear Cardiovascular/Chest: Present: regular rate, rhythm, no murmur, normal peripheral pulses Back Exam: Present: no CVA tenderness, no vertebral tenderness, other - Paraspinal muscle tenderness in bilateral lumbar regions Extremity Exam: Present: non-tender, normal range of motion, pedal edema Neurological Exam: Present: alert, oriented, normal mood/affect, no motor/ sensory deficits Skin Exam: Present: normal color, warm/dry ED Progress - Vital Signs Patient's Vital Signs:: I have reviewed the patient's vital signs. Vital Signs: Vital Signs 10/07/17 15:16 Temperature 37.0 C Pulse Rate 97 Respiratory 14 Rate Blood Pressure 147/93 O2 Sat by Pulse 96 Oximetry - Progress/Reassessment Chief Complaint: Back Pain Progress:: Improved Departure Clinical Impression: Low back pain radiating to left lower extremity - Departure Disposition: Home Follow Up Needed Condition: Stable Instructions: Back Pain, Adult, [id number] Additional Instructions: Do not take Aleve, naproxen, ibuprofen, Motrin or Advil You can take Tylenol as directed on label Muscle relaxant will cause drowsiness - you can try taken 1/2 a tablet if it is excessive Follow up with Dr. Deutsch tomorrow as scheduled Referrals: Gillian Deutsch MD [Primary Care Provider] - Prescriptions: Cyclobenzaprine HCl [Flexeril] 10 mg PO TID PRN #20 tab PRN Reason: MUSCLE SPASMS
[2017-10-07 16:04] VITALS: BP 134/78
== END 2017-10-07 16:05 | disposition home or self-care (01) ==
LOC: ER 15:13
DX: M54.5 Low back pain (principal); E03.9 Hypothyroidism, unspecified; F32.9 Major depressive disorder, single episode, unspecified; K21.9 Gastro-esophageal reflux disease without esophagitis; I10 Essential (primary) hypertension; I50.9 Heart failure, unspecified; I48.91 Unspecified atrial fibrillation; Z79.01 Long term (current) use of anticoagulants